=== PATIENT | male | born 1960 | race Caucasian/White ===

== ENCOUNTER 2019-03-27 08:07 | Day surgery (SDC) | payer OTHER ==
[~2019-03-27 08:07] MED LIST: Lactated Ringers 1,000 ML IV SCH; Midazolam 1 MG/ML 2 ML SDV ONE; Propofol 200 MG/20 ML SDV ONE; fentaNYL 100 MCG/2 ML SDV ONE
[2019-03-27] MEDS ORDERED: Sodium Chloride 0.9% 1,000 ML IV SCH (08:45)
[2019-03-27] MEDS ORDERED: Bupivacaine 0.5% 50 ML MDV ONE (09:09)
[2019-03-27] MEDS ORDERED: Lidocaine 1% with EPINEPHrine 1:100,000 50 ML MDV ONE (09:09)
[2019-03-27] MEDS ORDERED: ceFAZolin 2 GM in Premix Bag 1 BAG IV ONE (09:15)
--- NOTE | 2019-03-28 07:59 | OR ---
DATE OF PROCEDURE: 03/27/2019 SURGEON: Gokul Cox MD PROCEDURE: Excision of back lipoma, right. COMPLICATIONS: None. MANUSCRIPT EDITOR: None. ANESTHESIA: MAC/local. RISKS: Risks, benefits, alternatives, and limitations including, but not limited to infection, bleeding, requirement for reoperation, scar tissue, seroma, hematoma, sepsis, and other infectious explanations were explained to the patient, who wished to proceed. We also discussed the possibility of open wound. DESCRIPTION OF PROCEDURE: The patient was placed in prone position. A 5-cm incision was made and anesthetized with lidocaine. Electrocautery was used to dissect down to the lipoma. The lipoma was not the typical single lipoma, allowing it to be shelled out, rather it was a matrix of small lipomas requiring individual removal. Once this was removed, direct pressure was held for 2 minutes. The wound was inspected for 1 minute for any evidence of bleeding, which none was noted. The wound was then closed with 3-0 Vicryl in interrupted fashion and 4-0 running in a horizontal mattress suture consisting of 2-0 nylon. Dressings were applied. The patient tolerated the procedure well. Gokul Cox MD /[id number]
== END 2019-03-27 12:20 | disposition home or self-care (01) ==
LOC: JP.SDS 08:07
PROVIDERS: ATTEND Surgery
DX: D17.1 Benign lipomatous neoplasm of skin and subcutaneous tissue of trunk (principal); K21.9 Gastro-esophageal reflux disease without esophagitis; E66.9 Obesity, unspecified; Z68.31 Body mass index [BMI] 31.0-31.9, adult
CPT/HCPCS: 11406; 12032; 36415; 80048; 85027; 88304; J0690; J2250; J2704; J3010; J3490; J7030

== ENCOUNTER 2021-10-17 04:25 | Emergency (ER) | payer OTHER ==
--- NOTE | 2021-10-17 05:15 | EDM.PDOC ---
<Gonzalo Mendosa - Last Filed: 10/17/21 15:59> ED HPI GENERAL MEDICAL PROBLEM - General Chief Complaint: Chest Pain Stated Complaint: CHEST PAIN Time Seen by Provider: 10/17/21 04:45 - Related Data Allergies Allergy/AdvReac Type Severity Reaction Status Date / Time No Known Allergies Allergy Verified 10/17/21 04:40 Home Meds: Home Meds Aspirin [Kenn Chewable] 81 mg PO DAILY 05/23/14 [History] Naproxen Sodium [Aleve] 440 mg PO DAILY 11/24/15 [History] Fenofibrate 54 mg PO DAILY 03/25/19 [History] Multivitamin [Multivitamins] 1 tab PO DAILY 03/25/19 [History] Pantoprazole Sodium [Protonix] 1 tab PO DAILY 10/17/21 [History] cephALEXin [Cephalexin] 500 mg PO BID 10/17/21 [History] oxyCODONE 5 mg PO ASDIRECTED 10/17/21 [History] Course - Re-Assessments/Exams Free Text/Narrative Re-Assessment/Exam: 10/17/21 16:00 Have updated [facility] multiple times today still is currently on a waiting list but no beds are available at this time, [facility] was on diversion, [facility] he could be on a waiting list at 14 no beds at [facility] or [facility], update time 1600 Departure - Departure Disposition: DC/Tfer to Other 70 Clinical Impression: Non-STEMI (non-ST elevated myocardial infarction) - Discharge Information Referrals: PCP,None [Primary Care Provider] - Forms: ED Department Discharge Care Plan Goals: Patient will be transferred to [facility] for further evaluation and treatment by interventional cardiology for a non-STEMI. <Ji Steele - Last Filed: 10/18/21 17:24> ED HPI GENERAL MEDICAL PROBLEM - General Source of Information: Reports: Patient, Family History Limitations: Reports: No Limitations - History of Present Illness INITIAL COMMENTS - FREE TEXT/NARRATIVE: 61-year-old male without any prior cardiac history, presents with substernal chest, upper mid back, and left arm pain for the past 24 to 36 hours. It tends to wax and wane, it is not positional, not related to activity or movement or breathing. Last night it was very sharp, he took an oxycodone and it helped. Denies shortness of breath, palpitations, pain with movement, falls, or abdominal distention. He had a robotic radical prostatectomy 6 days ago. He is healing well, for the first several days he was walking around the house without issues but now the last 24 hours he has had this pain. It is not positional or worse with activity. Onset: Gradual Duration: Hour(s): (36 hours) Location: Reports: Chest, Back, Upper Extremity, Left Quality: Reports: Ache, Burning Severity: Moderate Improves with: Reports: None Worsens with: Reports: None Associated Symptoms: Reports: No Other Symptoms Chest Pain Score (Numeric/FACES): 6 Past Medical History HEENT History: Reports: Hard of Hearing Cardiovascular History: Reports: High Cholesterol Gastrointestinal History: Reports: GERD Genitourinary History: Reports: Prostate Disorder, Other (See Below) Other Genitourinary History: prostate cancer 21 Musculoskeletal History: Reports: Back Pain, Chronic Oncologic (Cancer) History: Reports: Basal Cell Carcinoma, Prostate - Infectious Disease History Infectious Disease History: Reports: Chicken Pox - Past Surgical History Cardiovascular Surgical History: Reports: None GI Surgical History: Reports: None Male Surgical History: Reports: Prostate Biopsy, Prostatectomy Other Male Surgeries/Procedures: robotic prostatectomy Oncologic Surgical History: Reports: Other (See Below) Other Oncologic Surgeries/Procedures: Left ear skin cancer removal. Prostate Biopsy. Dermatological Surgical History: Reports: Other (See Below) Social & Family History - Tobacco Use Tobacco Use Status *Q: Never Tobacco User - Caffeine Use Caffeine Use: Reports: Coffee, Soda - Recreational Drug Use Recreational Drug Use: No ED ROS GENERAL - Review of Systems Review Of Systems: See Below Constitutional: Reports: Other (Appetite is excellent, he is eating well). Denies: Fever, Chills, Malaise HEENT: Reports: No Symptoms Respiratory: Denies: Shortness of Breath, Pleuritic Chest Pain Cardiovascular: Reports: Chest Pain GI/Abdominal: Reports: Abdominal Pain (Typical post abdominal surgery pains, nothing worsening) : Reports: Other (He has an indwelling Dalton) Musculoskeletal: Reports: Neck Pain (Upper back and neck), Arm Pain (Left arm pain and neck pain) Skin: Reports: Bruising (Some perioperative bruising, no redness or warmth) Neurological: Reports: No Symptoms. Denies: Headache Psychiatric: Reports: No Symptoms ED EXAM, GENERAL - Physical Exam Exam: See Below Exam Limited By: No Limitations General Appearance: Alert, No Apparent Distress Eye Exam: Bilateral Eye: Normal Inspection Head: Atraumatic Neck: Supple, Non-Tender Respiratory/Chest: Lungs Clear. No: Respiratory Distress Cardiovascular: Normal Peripheral Pulses, Regular Rate, Rhythm. No: Tachycardia GI/Abdominal: Normal Bowel Sounds, Soft, Non-Tender, Other (Some mild abdominal tenderness around the surgical incisions) Extremities: Normal Inspection, Other (No pain with movement of the left arm, no pain with palpation) Neurological: Alert, Oriented, No Motor/Sensory Deficits Psychiatric: Normal Affect, Normal Mood Skin Exam: Warm, Dry (Other than bruising around the perioperative incisions) #1 Interpretation EKG Date: 10/17/21 Time: 04:50 Rhythm: NSR Course - Vital Signs Last Recorded V/S: Last Vital Signs Temp 98.2 F 10/18/21 16:16 Pulse 77 10/18/21 15:53 Resp 22 H 10/18/21 15:53 BP 104/58 L 10/18/21 15:53 Pulse Ox 96 10/18/21 15:53 - Orders/Labs/Meds Orders: Active Orders 24 hr Category Date Time Status EKG 12 Lead [EK] Routine Ther 10/18/21 07:00 Ordered Labs: Laboratory Tests 10/17/21 10/17/21 10/17/21 Range/Units 04:40 04:40 04:40 WBC 7.6 (4.5-11.0) K/uL RBC 4.99 (4.30-5.90) M/uL Hgb 14.2 (12.0-15.0) g/dL Hct 41.6 (40.0-54.0) % MCV 83 (80-98) fL MCH 29 (27-31) pg MCHC 34 (32-36) % Plt Count 224 (150-400) K/uL Neut % (Auto) 53.3 (36-66) % Lymph % (Auto) 33.1 (24-44) % [place] % (Auto) 9.0 H (2-6) % Eos % (Auto) 4.5 H (2-4) % Baso % (Auto) 0.1 (0-1) % APTT (21.4-31.8) sec D-Dimer, Quantitative 721.78 H (0.0-500.0) ng/mL Sodium 142 (140-148) mmol/L Potassium 4.2 (3.6-5.2) mmol/L Chloride 104 (100-108) mmol/L Carbon Dioxide 27 (21-32) mmol/L Anion Gap 11.5 (5.0-14.0) mmol/L BUN 21 H (7-18) mg/dL Creatinine 0.9 (0.8-1.3) mg/dL Est Cr Clr Drug Dosing 89.25 mL/min Estimated GFR (MDRD) > 60 (>60) Glucose 127 H (74-106) mg/dL Calcium 8.8 (8.5-10.1) mg/dL Total Bilirubin 0.3 (0.2-1.0) mg/dL AST 37 D (15-37) U/L ALT 46 D (12-78) U/L Alkaline Phosphatase 70 (46-116) U/L Troponin I 2.833 H* (0.000-0.056) ng/mL Total Protein 6.8 (6.4-8.2) g/dL Albumin 3.5 (3.4-5.0) g/dL Globulin 3.3 (2.3-3.5) g/dL Albumin/Globulin Ratio 1.1 L (1.2-2.2) 10/17/21 10/17/21 10/17/21 Range/Units 06:29 11:02 13:00 WBC (4.5-11.0) K/uL RBC (4.30-5.90) M/uL Hgb (12.0-15.0) g/dL Hct (40.0-54.0) % MCV (80-98) fL MCH (27-31) pg MCHC (32-36) % Plt Count (150-400) K/uL Neut % (Auto) (36-66) % Lymph % (Auto) (24-44) % [place] % (Auto) (2-6) % Eos % (Auto) (2-4) % Baso % (Auto) (0-1) % APTT 26.9 (21.4-31.8) sec D-Dimer, Quantitative (0.0-500.0) ng/mL Sodium (140-148) mmol/L Potassium (3.6-5.2) mmol/L Chloride (100-108) mmol/L Carbon Dioxide (21-32) mmol/L Anion Gap (5.0-14.0) mmol/L BUN (7-18) mg/dL Creatinine (0.8-1.3) mg/dL Est Cr Clr Drug Dosing mL/min Estimated GFR (MDRD) (>60) Glucose (74-106) mg/dL Calcium (8.5-10.1) mg/dL Total Bilirubin (0.2-1.0) mg/dL AST (15-37) U/L ALT (12-78) U/L Alkaline Phosphatase (46-116) U/L Troponin I 5.163 H* 10.410 H* (0.000-0.056) ng/mL Total Protein (6.4-8.2) g/dL Albumin (3.4-5.0) g/dL Globulin (2.3-3.5) g/dL Albumin/Globulin Ratio (1.2-2.2) 10/17/21 10/18/21 10/18/21 Range/Units 19:03 04:55 04:55 WBC (4.5-11.0) K/uL RBC (4.30-5.90) M/uL Hgb (12.0-15.0) g/dL Hct (40.0-54.0) % MCV (80-98) fL MCH (27-31) pg MCHC (32-36) % Plt Count (150-400) K/uL Neut % (Auto) (36-66) % Lymph % (Auto) (24-44) % [place] % (Auto) (2-6) % Eos % (Auto) (2-4) % Baso % (Auto) (0-1) % APTT 28.3 (21.4-31.8) sec D-Dimer, Quantitative (0.0-500.0) ng/mL Sodium (140-148) mmol/L Potassium (3.6-5.2) mmol/L Chloride (100-108) mmol/L Carbon Dioxide (21-32) mmol/L Anion Gap (5.0-14.0) mmol/L BUN (7-18) mg/dL Creatinine (0.8-1.3) mg/dL Est Cr Clr Drug Dosing mL/min Estimated GFR (MDRD) (>60) Glucose (74-106) mg/dL Calcium (8.5-10.1) mg/dL Total Bilirubin (0.2-1.0) mg/dL AST (15-37) U/L ALT (12-78) U/L Alkaline Phosphatase (46-116) U/L Troponin I 10.089 H* 9.469 H* (0.000-0.056) ng/mL Total Protein (6.4-8.2) g/dL Albumin (3.4-5.0) g/dL Globulin (2.3-3.5) g/dL Albumin/Globulin Ratio (1.2-2.2) 10/18/21 Range/Units 12:33 WBC (4.5-11.0) K/uL RBC (4.30-5.90) M/uL Hgb (12.0-15.0) g/dL Hct (40.0-54.0) % MCV (80-98) fL MCH (27-31) pg MCHC (32-36) % Plt Count (150-400) K/uL Neut % (Auto) (36-66) % Lymph % (Auto) (24-44) % [place] % (Auto) (2-6) % Eos % (Auto) (2-4) % Baso % (Auto) (0-1) % APTT 27.6 (21.4-31.8) sec D-Dimer, Quantitative (0.0-500.0) ng/mL Sodium (140-148) mmol/L Potassium (3.6-5.2) mmol/L Chloride (100-108) mmol/L Carbon Dioxide (21-32) mmol/L Anion Gap (5.0-14.0) mmol/L BUN (7-18) mg/dL Creatinine (0.8-1.3) mg/dL Est Cr Clr Drug Dosing mL/min Estimated GFR (MDRD) (>60) Glucose (74-106) mg/dL Calcium (8.5-10.1) mg/dL Total Bilirubin (0.2-1.0) mg/dL AST (15-37) U/L ALT (12-78) U/L Alkaline Phosphatase (46-116) U/L Troponin I (0.000-0.056) ng/mL Total Protein (6.4-8.2) g/dL Albumin (3.4-5.0) g/dL Globulin (2.3-3.5) g/dL Albumin/Globulin Ratio (1.2-2.2) Meds: Medications Discontinued Medications Generic Name Dose Route Start Last Admin Trade Name Freq PRN Reason Stop Dose Admin Atorvastatin Calcium 20 mg 10/17/21 21:00 10/17/21 21:31 Atorvastatin 20 Mg Tab PO 20 mg BEDTIME LILIANA Administration Cephalexin 500 mg 10/17/21 17:30 10/18/21 11:08 Cephalexin 250 Mg Cap PO 500 mg BID@0900,1730 LILIANA Administration Fenofibrate 54 mg 10/17/21 16:30 10/18/21 11:12 Fenofibrate 54 Mg Tab PO 54 mg DAILY LILIANA Administration Heparin Sodium (Porcine) 4,000 units 10/17/21 06:06 10/17/21 06:17 Heparin Sodium 5,000 Units/Ml Vial IVPUSH 10/17/21 06:07 4,000 units ONETIME ONE Administration Sodium Chloride 1,000 mls @ 125 mls/hr 10/17/21 06:00 10/17/21 06:09 Normal Saline IV 125 mls/hr ASDIRECTED LILIANA Administration Heparin Sodium/Dextrose 25,000 units in 500 mls @ 16 mls/hr 10/17/21 06:15 10/18/21 12:22 Heparin 25,000 Units In D5w 500 Ml IV 800 units/hr TITRATE LILIANA 16 mls/hr Administration Protocol 800 UNITS/HR Nitroglycerin/Dextrose 25 mg in 250 mls @ 6 mls/hr 10/17/21 16:30 Nitroglycerin 25 Mg/D5w 250 Ml IV TITRATE LILIANA Protocol 10 MCG/MIN Heparin Sodium/Dextrose 25,000 units in 500 mls @ 20 mls/hr 10/18/21 14:15 10/18/21 14:39 Heparin 25,000 Units In D5w 500 Ml IV 1,000 units/hr TITRATE LILIANA 20 mls/hr Administration Protocol 1,000 UNITS/HR Ketorolac Tromethamine 30 mg 10/17/21 05:37 10/17/21 05:58 Ketorolac 30 Mg/Ml Sdv IM 10/17/21 05:38 Not Given ONETIME ONE Metoprolol Tartrate 12.5 mg 10/17/21 16:30 10/18/21 11:06 Metoprolol Tartrate 25 Mg Tab PO 12.5 mg Q6H LILIANA Administration Morphine Sulfate 2 mg 10/17/21 10:04 10/17/21 17:49 Morphine 2 Mg/Ml Syringe IVPUSH 2 mg Q2H PRN Administration Pain Naproxen 500 mg 10/18/21 09:05 10/18/21 11:07 Naproxen 250 Mg Tab PO 10/18/21 09:06 500 mg ONETIME ONE Administration Pantoprazole Sodium 40 mg 10/17/21 17:30 10/18/21 11:07 Pantoprazole 40 Mg Tab.Cr PO 40 mg ACBREAKFAST LILIANA Administration Ticagrelor 180 mg 10/17/21 07:27 10/17/21 07:38 Ticagrelor 90 Mg Tab PO 10/17/21 07:28 180 mg ONETIME ONE Administration - Re-Assessments/Exams Free Text/Narrative Re-Assessment/Exam: 10/17/21 05:24 An EKG was done on arrival which is completely normal. His physical exam is basically normal as well other than some mild postoperative pain which is expected. Two-view chest x-ray was ordered, CBC, CMP troponin and D-dimer. 10/17/21 05:54 CBC is normal, 2 view chest x-ray it looks free of acute findings, however his troponin returned significantly elevated at 2.8. At this point I called [facility] as they do have interventional cardiology procedure capabilities but they could not take the patient. He was moved into a more acute room, IV started, and we will start a nitro drip to see if we can decrease his pain along with some IV morphine. I am awaiting a callback from the urologist from [facility] to get the okay to start a heparin drip so soon after major surgery. 10/17/21 06:07 Urologist call back, as long as there is no gross hematuria heparin can be used. Patient's urine is clear visually, however when we moved him I discussed starting nitroglycerin he insisted that he is now pain-free. We will hold the nitroglycerin at this time but given 4000 units of IV heparin and started a drip at 800 units an hour. [facility] in [place] was called and they do have a good chance of excepting him later this morning. 10/18/21 14:42 Continue to hold on heparin while waiting [facility] to call for okay to transfer. EKG was done this morning which showed no significant change, however the patient did have a troponin increased to a level of 10 before starting to go down. He remains relatively asymptomatic, ambulates without difficulty but his PTT was only 29 so his heparin was increased from 800-1000 an hour. Hopefully we will get an okay to transfer soon. 10/18/21 16:14 Dr. Florentino, [facility] in [place] kindly accepted the patient for transfer. He will be a direct admit to cardiac floor, heparin will be continued. Departure - Departure Time of Disposition: 16:45 Sepsis Event Note (ED) - Evaluation Sepsis Screening Result: No Definite Risk - Focused Exam Vital Signs: Vital Signs Temp Pulse Pulse Resp BP BP Pulse Ox 10/18/21 16:16 98.2 F 10/18/21 15:53 77 22 H 104/58 L 96 10/18/21 15:17 80 105/64 10/18/21 12:59 87 22 H 106/65 10/18/21 11:42 81 21 H 107/64 10/18/21 11:06 86 111/64 10/18/21 10:36 89 25 H 111/64 10/18/21 07:58 85 20 109/71 10/18/21 05:36 80 24 H 109/70 96 - My Orders Last 24 Hours: My Active Orders 10/18/21 07:00 EKG 12 Lead [EK] Routine - Assessment/Plan Last 24 Hours: My Active Orders 10/18/21 07:00 EKG 12 Lead [EK] Routine
[2021-10-17] MEDS ORDERED: Ketorolac 30 MG/ML SDV IM ONE (05:37)
[2021-10-17] MEDS ORDERED: Sodium Chloride 0.9% 1,000 ML IV SCH (06:00)
[2021-10-17] MEDS ORDERED: Heparin Sodium 5,000 Units/ML Vial IVPUSH ONE (06:06)
[2021-10-17] MEDS: Heparin Sodium/D5W 25,000 UNITS/500 ML BAG IV SCH (06:17)
[2021-10-17] MEDS ORDERED: Ticagrelor 90 MG Tab PO ONE (07:27)
--- NOTE | 2021-10-17 10:04 | CR ---
CHEST: 2 view CLINICAL HISTORY:Dyspnea COMPARISON:2014 FINDINGS: Heart size is mildly enlarged. Pulmonary vascularity is normal. There are atherosclerotic changes in the aorta. There is some patchy density in the right infrahilar region which appears to be in the right middle lobe. Impression: Patchy right middle lobe pneumonia versus atelectasis. Follow-up recommended until clear
[2021-10-17] MEDS: Morphine 2 MG/ML SYRINGE IVPUSH PRN ×2 (11:04→17:49)
[2021-10-17] MEDS ORDERED: Non-Formulary Medication 1 Each (Pantoprazole Sodium [Protonix] 20 MG Tablet.Dr) PO SCH (16:30)
[2021-10-17] MEDS ORDERED: Nitroglycerin/D5W 25 MG/250 ML BOTTLE IV SCH (16:30)
[2021-10-17] MEDS ORDERED: CEPHALEXIN 500 MG PO SCH (16:30)
[2021-10-17] MEDS: Cephalexin 250 MG Cap PO SCH (17:48)
[2021-10-17] MEDS: Fenofibrate 54 MG Tab PO SCH (17:48)
[2021-10-17] MEDS: Metoprolol Tartrate 25 MG Tab PO SCH ×2 (17:48→21:31)
[2021-10-17] MEDS: Pantoprazole 40 MG Tab.CR PO SCH (17:49)
[2021-10-17] MEDS ORDERED: atorvaSTATin 20 MG Tab PO SCH (21:00)
[2021-10-18] MEDS: Metoprolol Tartrate 25 MG Tab PO SCH ×2 (05:02→11:06)
[2021-10-18] MEDS ORDERED: Naproxen 250 MG Tab PO ONE (09:05)
[2021-10-18] MEDS: Pantoprazole 40 MG Tab.CR PO SCH (11:07)
[2021-10-18] MEDS: Cephalexin 250 MG Cap PO SCH (11:08)
[2021-10-18] MEDS: Fenofibrate 54 MG Tab PO SCH (11:12)
[2021-10-18] MEDS: Heparin Sodium/D5W 25,000 UNITS/500 ML BAG IV SCH (12:22)
[2021-10-18] MEDS ORDERED: Heparin Sodium/D5W 25,000 UNITS/500 ML BAG IV SCH (14:15)
== END 2021-10-18 16:56 | disposition other institution (70) ==
LOC: JP.ED 04:25
DX: I21.4 Non-ST elevation (NSTEMI) myocardial infarction (principal); E78.00 Pure hypercholesterolemia, unspecified; K21.9 Gastro-esophageal reflux disease without esophagitis; Z79.82 Long term (current) use of aspirin; Z79.899 Other long term (current) drug therapy
CPT/HCPCS: 36415; 71046; 80053; 84484; 85025; 85379; 85730; 93005; 96365; 96366; 96375; 96376; 99285; A9270; J1644; J2270; J7030

== ENCOUNTER 2022-10-10 06:31 | Day surgery (SDC) | payer OTHER ==
[~2022-10-10 06:31] MED LIST changes: -Midazolam 1 MG/ML 2 ML SDV ONE; -Propofol 200 MG/20 ML SDV ONE; -fentaNYL 100 MCG/2 ML SDV ONE
[2022-10-10] MEDS ORDERED: Dextrose 5%-Lactated Ringers 1,000 ML IV SCH (07:00)
[2022-10-10] MEDS ORDERED: Midazolam 1 MG/ML 2 ML SDV ONE (07:51)
[2022-10-10] MEDS ORDERED: Propofol 200 MG/20 ML SDV ONE ×2 (07:51→09:06)
[2022-10-10] MEDS ORDERED: fentaNYL 50 MCG/ML SDV ONE (07:52)
== END 2022-10-10 10:28 | disposition home or self-care (01) ==
LOC: JP.SDS 06:31
PROVIDERS: ATTEND Surgery
DX: D12.0 Benign neoplasm of cecum (principal); K22.70 Barrett's esophagus without dysplasia; K31.A19 Gastric intestinal metaplasia without dysplasia, unspecified site; K64.8 Other hemorrhoids; K44.9 Diaphragmatic hernia without obstruction or gangrene; K29.70 Gastritis, unspecified, without bleeding; K21.9 Gastro-esophageal reflux disease without esophagitis; I21.4 Non-ST elevation (NSTEMI) myocardial infarction
CPT/HCPCS: 87081; J2250; J2704; J3010; J7121